=== PATIENT | male | born 1960 | race American Indian/Alaskan Native ===

== ENCOUNTER 2019-02-15 07:13 | Emergency (ER) | payer MEDICARE, MEDICAID ==
[2019-02-15 11:53] LABS: Basophils % (Auto) 0.4 % (0.0-1.8); Eosinophils # (Auto) 0.2 K/mm3 (0.0-0.4); Eosinophils % (Auto) 4.3 % (0.0-4.3); Hemoglobin 15.7 gm/dl (11.8-15.2); Lymphocytes # (Auto) 1.5 K/mm3 (1.2-5.4); Lymphocytes % (Auto) 33.6 % (13.4-35.0); Mean Corpuscular HGB Conc 34 % (32-34); Mean Corpuscular Volume 98 fl (84-94); Monocytes # (Auto) 0.4 K/mm3 (0.0-0.8); Monocytes % (Auto) 8.3 % (0.0-7.3); Platelet Count 172 K/mm3 (140-440); Red Blood Count 4.69 M/mm3 (3.65-5.03); Red Cell Distribution Width 15.6 % (13.2-15.2)
[2019-02-15 12:02] LABS: BUN/Creatinine Ratio 13; Blood Urea Nitrogen 12 mg/dL (9-20); Calcium 8.9 mg/dL (8.4-10.2); Hemolysis Index 8
--- NOTE | 2019-02-15 12:10 | Emergency Department Report ---
HPI - General Chief Complaint: Psych Time Seen by Provider: 02/15/19 11:24 - HPI HPI: 58-year-old -Nigerien male presents to the emergency department from his transitional home, with the spoon maker at bedside, for a mental health evaluation. The patient has a known history of schizophrenia and allegedly is compliant with his medications. He has been hearing voices and the spoon maker says that he has been very aggressive towards other residents in the transitional home. He says that the voices tell him to harm the other residents only if they try to harm him first or attack him. He says that he has not been aggressive or has not gotten physical with any of the other residents. He denies any suicidal or homicidal ideations. He has been at this transitional home for about one week. ED Past Medical Hx - Past Medical History Previous Medical History?: Yes Hx Psychiatric Treatment: Yes (SCHIZOPHERNIA BIPOLAR) Additional medical history: MILD RETARTION - Surgical History Past Surgical History?: No - Social History Smoking Status: Never Smoker Substance Use Type: None - Medications Home Medications: Home Medications Medication Instructions Recorded Confirmed Last Taken Type Divalproex Dr [Melquiades BURNS] 800 mg PO QHS 02/15/19 02/15/19 Unknown History Quetiapine Fumarate [SEROquel] 300 mg PO QHS 02/15/19 02/15/19 Unknown History Sertraline [Zoloft] 50 mg PO QDAY 02/15/19 02/15/19 Unknown History cloNIDine-TTS PATCH [Catapres-Tts 0.2 mg .ROUTE QWEEK 02/15/19 02/15/19 Unknown History 0.2mg Patch] clonazePAM [KlonoPIN] 2 mg PO QHS 02/15/19 02/15/19 Unknown History risperiDONE [Risperdal] 2 mg PO BID 02/15/19 02/15/19 Unknown History ED Review of Systems ROS: Stated complaint: AGGRESSIVE/SCHIZO BEHAVIOR/HALLUCINATION Other details as noted in HPI Comment: All other systems reviewed and negative Constitutional: denies: chills, fever Eyes: denies: eye pain, vision change ENT: denies: ear pain, throat pain Respiratory: denies: cough, shortness of breath Cardiovascular: denies: chest pain, palpitations Gastrointestinal: denies: abdominal pain, vomiting Genitourinary: denies: dysuria, discharge Musculoskeletal: denies: back pain, arthralgia Skin: denies: rash, lesions Neurological: denies: weakness, confusion Psychiatric: auditory hallucinations. denies: suicidal thoughts Physical Exam - Physical Exam Vital Signs: Vital Signs 02/15/19 11:39 Temperature 97.5 F L Pulse Rate 84 Respiratory 18 Rate Blood Pressure 144/88 [Left] O2 Sat by Pulse 97 Oximetry Physical Exam: GENERAL: The patient is well-developed well-nourished. HENT: Normocephalic. Atraumatic. Patient has moist mucous membranes. EYES: Extraocular motions are intact. Pupils equal reactive to light bilaterally. NECK: Supple. Trachea is midline. CHEST/LUNGS: Clear to auscultation. There is no respiratory distress noted. HEART/CARDIOVASCULAR: Regular. There is no tachycardia. There is no murmur. ABDOMEN: Abdomen is soft, nontender. Patient has normal bowel sounds. There is no abdominal distention. SKIN: Skin is warm and dry. NEURO: The patient is awake, alert. The patient has no focal neurologic deficits. The patient has normal speech. MUSCULOSKELETAL: There is no tenderness or deformity. There is no limitation range of motion. There is no evidence of acute injury. PSYCH: Patient is disorganized. He is sometimes redirectable. ED Course Vital Signs 02/15/19 11:39 Temperature 97.5 F L Pulse Rate 84 Respiratory 18 Rate Blood Pressure 144/88 [Left] O2 Sat by Pulse 97 Oximetry ED Medical Decision Making - Lab Data Result diagrams: 02/15/19 11:30 02/15/19 11:30 - Medical Decision Making This patient was brought in from his transitional home with complaint that he is acting agitated and aggressive towards other residents. The patient does have a history of schizophrenia as well as some level of mental retardation. He does admit to auditory hallucinations. From my observation of this patient in the emergency department thus far, I do not see the aggressive behavior. However the patient is very disorganized with tangential thoughts and is consistently trying to elope from the emergency department. While I cannot confirm that the patient has been a danger to any of the other residents, given his schizophrenia and MR, and given his disorganized and tangential thoughts, I do see how the patient could easily become agitated and aggressive. He is having this these issues despite compliance with his psychiatric medications. His labs thus far has been unremarkable. We are awaiting a urine sample for urinalysis and urine drug screen. I do not feel that the urine drug screen will change his plan for disposition. If the patient has a urinary tract infection, antibiotics will be added. He has been made a 1013 secondary to this exacerbation of his schizophrenia and some signs of psychosis. At this time the patient appears medically cleared for psychiatric placement. - Differential Diagnosis schizophrenia, bipolar disorder, substance abuse, mental retardation Critical Care Time: No Critical care attestation.: If time is entered above; I have spent that time in minutes in the direct care of this critically ill patient, excluding procedure time. ED Disposition Clinical Impression: Acute psychosis, History of schizophrenia Disposition: [id number]/TX-65 PSY HOSP/PSY UNIT Is pt being admited?: No Condition: Stable Referrals: PRISCILA MALHOTRA MD [Primary Care Provider] - 3-5 Days Time of Disposition: 16:19
[2019-02-15] MEDS: ZOLOFT PO SCH (15:42)
[2019-02-15 18:51] LABS: Bilirubin,Urine NEG (Negative); Blood,Urine NEG (Negative); Color,Urine Yellow (Yellow); Mucus,Urine FEW /HPF; Protein,Urine <15 mg/dL mg/dL (Negative); Sperm,Urine FEW /HPF (NP); Urobilinogen,Urine < 2.0 mg/dL (<2.0)
[2019-02-15 18:57] LABS: Amphetamine Screen,Urine PRESUMPTIVE NEGATIVE; Benzodiazepines Screen,Urine PRESUMPTIVE NEGATIVE; Cannabinoid Screen,Urine PRESUMPTIVE NEGATIVE; Cocaine Screen,Urine PRESUMPTIVE NEGATIVE; Methadone Screen,Urine PRESUMPTIVE NEGATIVE; Opiate Screen,Urine PRESUMPTIVE NEGATIVE
[2019-02-15] MEDS ORDERED: NON-FORMULARY (Quetiapine Fumarate [Seroquel] 300 MG) PO SCH (22:00)
[2019-02-15] MEDS ORDERED: NON-FORMULARY (Risperidone [Risperdal] 2 MG) PO SCH (22:00)
[2019-02-15] MEDS: RisperDAL PO SCH (22:30)
[2019-02-16 10:39] VITALS: BP 148/76
[2019-02-16] MEDS: RisperDAL PO SCH (11:30)
[2019-02-16] MEDS: ZOLOFT PO SCH (11:31)
--- NOTE | 2019-02-16 12:22 | Consultation ---
History of Present Illness - Reason for Consult Consult date: 02/16/19 Reason for consult: Mental health Evaluation Requesting physician: SERENA ROBERTSON - Chief Complaint Chief complaint: "I'm okay today" - History of Present Psychiatric Illness 58-year-old -Armenian male presented to the ER for bizarre behavior and AH's. Today the patient is calm, but disorganized and tangent during the assessment. His answers to questions were not logical. He had to be directed several times to keep him on topic. He does acknowledged hearing voices, but could not state what the voices are saying. No gestures of SI/HI's. Medications and Allergies Allergies Allergy/AdvReac Type Severity Reaction Status Date / Time No Known Allergies Allergy Unverified 02/15/19 11:31 Home Medications Medication Instructions Recorded Confirmed Last Taken Type Divalproex Dr [DepaKOTE DR] 800 mg PO QHS 02/15/19 02/15/19 Unknown History Quetiapine Fumarate [SEROquel] 300 mg PO QHS 02/15/19 02/15/19 Unknown History Sertraline [Zoloft] 50 mg PO QDAY 02/15/19 02/15/19 Unknown History cloNIDine-TTS PATCH [Catapres-Tts 0.2 mg .ROUTE QWEEK 02/15/19 02/15/19 Unknown History 0.2mg Patch] clonazePAM [KlonoPIN] 2 mg PO QHS 02/15/19 02/15/19 Unknown History risperiDONE [Risperdal] 2 mg PO BID 02/15/19 02/15/19 Unknown History Past psychiatric history - Past Medical History Past Medical History: other (Possible MR per the EMR) Past Surgical History: Other (Unable to obtain ) - past Psychiatric treatment and history psychiatric treatment history: Unable to obtain a psy and fam psy hx. - Social History Social history: other (Reside at a transitional home) Mental Status Exam - Vital signs Last Vital Signs Temp 98.0 F 02/16/19 10:38 Pulse 86 02/16/19 10:38 Resp 18 02/16/19 10:38 BP 148/76 02/16/19 10:38 Pulse Ox 98 02/16/19 10:38 - Exam Narrative exam: MSE: Appearance: calm, cooperative Behavior: regular eye contact Speech: regular rate and tone Mood: "okay" Affect: flat Thought Process: disorganized, tangential Thought Content: denies SI/HI's and VH's Motor Activity: lying in bed Cognition: A/O x3 Insight: poor Judgment: poor Results Result Diagrams: 02/15/19 11:30 02/15/19 11:30 All other labs normal. Assessment and Plan Assessment and plan: Impression: Unspecified Psychosis. Today the patient is calm, but disorganized during the assessment. UDS is negative. DDx: Schizophrenia Recommendation/Plan: Continue 1013. Dispo: The patient was accepted at [facility] for inpatient psy services. Will staff with Dr Lacey Morrison.
== END 2019-02-16 11:46 ==
LOC: ED 07:13
DX: F20.9 Schizophrenia, unspecified (principal); F31.9 Bipolar disorder, unspecified
CPT/HCPCS: 36415; 80048; 80164; 80307; 81001; 85025; 99285; G0480; 80320